=== PATIENT | female | born 1995 | race Caucasian/White ===

== ENCOUNTER 2022-02-03 12:51 | Outpatient (CLI) | payer OTHER ==
[2022-02-03 14:01] LABS: Appearance,Urine Clear (Clear); Bilirubin,Urine Negative (Negative); Blood,Urine Negative (Negative); Color,Urine Yellow; Glucose,Urine (UA) Negative (Negative); Ketones,Urine Negative (Negative); Leukocyte Esterase,Urine Moderate (Negative); Mucus,Urine Occasional /hpf; Nitrite,Urine Negative (Negative); Protein,Urine Negative (Negative); RBC,Urine 1 /hpf (0-5); Specific Gravity,Urine 1.013 (1.001-1.035); Squamous Epithelial Cell,Urine 3 /hpf (0-4); Urobilinogen,Urine <2.0 mg/dL (<2.0); WBC,Urine 2 /hpf (0-5)
[2022-02-03 14:36] VITALS: BP 113/63; PULSE 75; RESP 17; TEMP 97.3
--- NOTE | 2022-02-04 10:52 | P.MSEPDOC ---
Presenting Problems - Arrival Data Date of Arrival on Unit: 02/03/22 Time of Arrival on Unit: 12:51 Mode of Transport: Ambulatory - Complaint OB-Reason for Admission/Chief Complaint: Decreased Movement, Acute Nausea/Vomiting Medical History - Information : 3 Para: 2 Term: 2 : 0 Abortions: Spontaneous or Elective: 0 Number of Living Children: 2 - Gestational Age Gestational Age by ROMY (wks/days): 23 Weeks and 1 Days Review of Systems - Review of Systems Constitutional: No problems Breast: No problems ENT: No problems Cardiovascular: No problems Respiratory: No problems Gastrointestinal: No problems Genitourinary: No problems Musculoskeletal: No problems Neurological: No problems Skin: No problems Vital Signs - Temperature Temperature: 97.3 F Temperature Source: Temporal Artery Scan - Pulse Right Brachial Pulse Rate: 75 Pulse Assessment Method: Automatic Cuff - Respirations Respiratory Rate: 17 Oxygen Delivery Method: Room Air - Blood Pressure Right Arm Blood Pressure: 113/63 Blood Pressure Mean: 79 Blood Pressure Source: Automatic Cuff Medical Screen Scoring - Uterine Contractions Frequency From (mins): 0 - Assessment - Baby A Baseline FHR: 130 Heart Rate - NICHD Category: Category I (Normal) Physician Notification - Physician Notified Physician Notified Date: 02/03/22 Physician Notified Time: 14:10 Physician: Allison Dillon Order Received: Yes - Notification Comment Comment: Discharged pt home on BRAT diet, instructions to increase oral fluids as able and return for assessment if unable to keep anything down for more than 24 hours, category 1 FHR's, no contractions, abd soft to palpation Maternal Triage Index - Maternal Triage Index Presenting for scheduled procedure w/no complaint: No - Stat/Priority 1 Stat Priority 1: No - Urgent/Priority 2 Urgent Priority 2: No - Prompt/Priority 3 Prompt Priority 3: No - Non-Urgent/Priority 4 Non-Urgent Priority 4: Yes Disposition - Disposition OB Disposition: Discharge to home Discharge Date: 02/03/22 Discharge Time: 14:20 I agree with the RN Medical Screening Exam: Yes Case reviewed; plan agreed upon as documented in EMR&OBIX.: Yes Diagnosis: NAUSEA WITH VOMITING, UNSPECIFIED
== END 2022-02-03 14:10 | disposition home or self-care (01) ==
LOC: FBPOP 12:51
PROVIDERS: ATTEND Obstetrics & Gynecology
DX: O21.2 Late vomiting of pregnancy (principal); Z3A.23 23 weeks gestation of pregnancy; Z88.0 Allergy status to penicillin
CPT/HCPCS: 59025; 81001; G0463; 99213